=== PATIENT | female | born 1960 | race African-American/Black ===

== ENCOUNTER 2020-10-27 21:06 | Emergency (ER) | payer OTHER, MEDICAID ==
[2020-10-27] MEDS ORDERED: Fentanyl 100 MCG/2 ML VIAL ONE (21:54)
[2020-10-27] MEDS ORDERED: Ondansetron PF 4 MG/2 ML Vial ONE (21:54)
== END 2020-10-27 22:48 | disposition home or self-care (01) ==
LOC: ERS 21:06
DX: S16.1XXA Strain of muscle, fascia and tendon at neck level, initial encounter (principal); S30.1XXA Contusion of abdominal wall, initial encounter; I10 Essential (primary) hypertension; E11.9 Type 2 diabetes mellitus without complications; R07.9 Chest pain, unspecified; V89.2XXA Person injured in unspecified motor-vehicle accident, traffic, initial encounter
CPT/HCPCS: 70450; 71260; 72125; 74177; 96374; 96375; G0390; J2405; J3010